=== PATIENT | female | born 1990 | race Caucasian/White ===

== ENCOUNTER 2019-08-28 21:01 | Outpatient (CLI) | payer OTHER ==
[2019-08-28 21:44] LABS: APPEARANCE,URINE SLIGHTLY-CLOUDY; BILIRUBIN,URINE SMALL (NEGATIVE); COLOR,URINE YELLOW; GLUCOSE, URINE NEGATIVE (NEGATIVE); KETONES,URINE 20 mg/dL (NEGATIVE); LEUKOCYTE ESTERASE,URINE LARGE (NEGATIVE); NITRITE,URINE NEGATIVE (NEGATIVE); PROTEIN,URINE 30 mg/dL (NEGATIVE); URINE SPECIFIC GRAVITY 1.038
[2019-08-28 21:54] LABS: URINE AMPHETAMINES SCREEN NEGATIVE; URINE BARBITURATES SCREEN NEGATIVE; URINE BENZODIAZEPINES SCREEN NEGATIVE; URINE COCAINE SCREEN NEGATIVE; URINE MARIJUANA (THC) SCREEN NEGATIVE; URINE METHADONE SCREEN NEGATIVE; URINE PHENCYCLIDINE SCREEN NEGATIVE
[2019-08-28] MEDS ORDERED: BUTALB/ACETAMINOPHEN/CAFFEINE 1 TAB EACH ONE (22:24)
[2019-08-28] MEDS ORDERED: RINGERS SOLUTION,LACTATED 300 ML IV ONE (22:30)
[2019-08-28] MEDS ORDERED: PROCHLORPERAZINE MALEATE 10 MG TABLET ONE (23:35)
[2019-08-28] MEDS ORDERED: PROCHLORPERAZINE MALEATE 10 MG TABLET PO ONE (23:38)
== END 2019-08-29 01:30 | disposition home or self-care (01) ==
LOC: LC 21:01
PROVIDERS: ATTEND Obstetrics & Gynecology
PROC: 4A1HXCZ Monitoring of Products of Conception, Cardiac Rate, External Approach (ICD-10-PCS; principal; 2019-08-28)
DX: O99.283 Endocrine, nutritional and metabolic diseases complicating pregnancy, third trimester (principal); E86.0 Dehydration; Z3A.31 31 weeks gestation of pregnancy
CPT/HCPCS: 59899; 81001; 80307; J3490; S0183

== ENCOUNTER 2019-10-22 20:20 | Outpatient (CLI) | payer OTHER ==
[2019-10-22 21:24] LABS: APPEARANCE,URINE CLEAR; BILIRUBIN,URINE NEGATIVE (NEGATIVE); COLOR,URINE STRAW; GLUCOSE, URINE NEGATIVE (NEGATIVE); KETONES,URINE NEGATIVE (NEGATIVE); LEUKOCYTE ESTERASE,URINE SMALL (NEGATIVE); NITRITE,URINE NEGATIVE (NEGATIVE); PROTEIN,URINE NEGATIVE (NEGATIVE); UROBILINOGEN,URINE NEGATIVE mg/dL (<2.0)
[2019-10-22 21:43] LABS: URINE AMPHETAMINES SCREEN NEGATIVE; URINE BARBITURATES SCREEN NEGATIVE; URINE BENZODIAZEPINES SCREEN NEGATIVE; URINE COCAINE SCREEN NEGATIVE; URINE MARIJUANA (THC) SCREEN NEGATIVE; URINE METHADONE SCREEN NEGATIVE; URINE PHENCYCLIDINE SCREEN NEGATIVE
[2019-10-22] MEDS ORDERED: HYDROXYZINE PAMOATE 50 MG CAPSULE PO ONE (21:45)
[2019-10-22] MEDS ORDERED: HYDROXYZINE PAMOATE 50 MG CAPSULE ONE (21:45)
--- NOTE | 2019-10-22 22:20 | Non Stress Test Report ---
Non Stress Test Datetime Report Generated by CPN: 10/22/2019 22:20 DEMOGRAPHIC EGA NST: 39.3 INDICATION Indication for Study (NST) Other: lc VITAL SIGNS Temperature - NST: 97.0 Pulse - NST: 81 RESP - NST: 17 NBPSYS NST: 121 NBPDIA NST: 72 MONITORING Monitor Explained: Monitor Explained; Test Explained; Patient Verbalized Understanding Time on Monitor: 10/22/2019 20:35 Time off Monitor: 10/22/2019 21:52 NST Duration: 77 NST INTERVENTIONS NST Interventions: PO Hydration; Reposition Patient Physician Notified NST: D [employer] CONVERTER SKIMMER A: [id number] BABY A Movement : Present Contraction Frequency : irreg FHR Baseline : 135 Accelerations : 15X15 Decelerations : None Variability : Moderate 6-25bpm NST Review: Meets Criteria for Reactive NST NST Review and Verified By : Michlele Elias RN NST Results: Reactive NST REPORT Report Trigger: Send Report
== END 2019-10-22 21:57 | disposition home or self-care (01) ==
LOC: LC 20:20
PROVIDERS: ATTEND Obstetrics & Gynecology
PROC: 4A1HXCZ Monitoring of Products of Conception, Cardiac Rate, External Approach (ICD-10-PCS; principal; 2019-10-22)
DX: O47.1 False labor at or after 37 completed weeks of gestation (principal); Z3A.39 39 weeks gestation of pregnancy
CPT/HCPCS: 59025; 80307; 81005

== ENCOUNTER 2019-10-24 07:41 | Inpatient (IN) | payer OTHER ==
[2019-10-24] MEDS ORDERED: ONDANSETRON HCL INJ/PF 4 MG/2 ML SDV ONE (08:48)
[2019-10-24] MEDS ORDERED: ONDANSETRON HCL INJ/PF 4 MG/2 ML SDV IV PRN (08:54)
--- NOTE | 2019-10-24 09:00 | Admission Physical ---
Datetime Report Generated by CPN: 10/24/2019 08:59 CURRENT ADMISSION Chief Complaint: Scheduled Induction of Labor Chief Complaint Other: Scheduled IOL: A1GDM, surrogate Indication for Induction: Maternal Diabetes Admit Impression : No Active Labor; Intact Membranes; Induction of Labor; Medical Complication Admit Plan: Admit to Unit; Initiate Labor Induction Protocol ALLERGIES Medication Allergies: No Medication Allergies: No Known Allergies (10/24/2019) Latex: No Latex Allergies Food Allergies: none Environmental Allergies: none OBSTETRICAL HISTORY EDC: 10/26/2019 00:00 : 7 Para: 6 Term: 6 : 0 SAB: 0 IAB: 0 Ectopic: 0 Cesareans: 0 VBACs: 0 Multiple Births: 0 Gestational Diabetes: Yes Rh Sensitization: No Incompetent Cervix: No QUAN: No Infertility: No ART Treatment: No Uterine Anomaly: No IUGR: No Hx Previous C/S: No Macrosomia: No Hx Loss/Stillborn: No PIH: No Hx : No Placenta Previa/Abruption: No Depression/PP Depression: No PTL/PROM: No Post Hemorrhage: No Current Procedures: Ultrasound; NST Obstetrical History Comments: G1- 2008 40.1 G2- 2010 39 G3- 2012 38 GHTN Magsulfate G4- 2014- surrogate G5- 2016- surrogate G6- 2017- surrogate G7- Current- surrogate, GDM, migraines headaches SEE RECORDS Alcohol: No Marijuana : No Cocaine: No Other Illicit Drugs: No Cigarettes: Never Smoker. [id number] MEDICAL HISTORY Diabetes: Yes Diabetes Type: Gestational Diabetes Blood Transfusion: No Pulmonary Disease (Asthma, TB): No Breast Disease: No Hypertension: No Chemical Production Technician Surgery: No Heart Disease: No Hosp/Surgery: No Autoimmune Disorder: No Anesthetic Complications: No Kidney Disease: No Abnormal Pap Smear: No Neuro/Epilepsy: No Psychiatric Disorders: No Other Medical Diseases: No Hepatitis/Liver Disease: No Significant Family History: No Varicosities/Phlebitis: No Trauma/Violence : No Thyroid Dysfunction: No INFECTIOUS HISTORY Gonorrhea: No Genital Herpes: No Chlamydia: No Tuberculosis: No Syphilis: No Hepatitis: No HIV/AIDS Exposure: No Rash or Viral Illness: No HPV: No PHYSICAL EXAM General: Normal HEENT: Normal Neurologic: Normal Thyroid: Normal Heart: Normal Lungs: Normal Breast: Normal Back: Normal Abdomen: Normal Genitourinary Exam: Normal Extremities: Normal DTRs: Normal Pelvic Type: Adequate Vital Signs: Reviewed; Within Normal Limits VAGINAL EXAM Dilatation: 4 Effacement: 60 Station: -1 Contraction Comments: Irregular MEMBRANES Membranes: Intact FETUS A EGA: 39.5 Monitoring: External US FHR- Baseline: 140 Variability: Moderate 6-25bpm Accelerations: 15X15 Decelerations: None FHR Category: Category I Presentation: Vertex Admit Comment: 29 yo at 39.5 wks EGA for IOL, complicated by A1GDM and surrogate . THis is 4th time she has been a surrogate. Mild anemia on Iron therapy -Admit to LDR -NPO except ice chips and popsicles -CEFM and toco -Admission labs -Accuchecks Q 4 hrs until active labor and then Q 2 hrs -RH neg, s/p rhogam at 28 wks -Rubella non--immune- vac after delivery -GBS negative -Begin Pitocin 2 units and increase by 2 units every 30 minutes -Anticipate . Hx of 6 prior SVDs -Cord blood collection at delivery for banking-per patient request. PLANS FOR LABOR AND DELIVERY Pain Management: Epidural Circumcision: No INFORMED CONSENT Informed Consent Obtained: Vaginal Delivery; Section Delivery; Induction of Labor; Risks, Benefits and Alternatives Discussed Signature: with User ID: [email or web address] : with User ID: [email or web address]
[2019-10-24] MEDS ORDERED: MISOPROSTOL 0.2 MG TABLET ONE (09:09)
[2019-10-24] MEDS ORDERED: OXYTOCIN 10 UNIT/ML VIAL ONE (09:09)
[2019-10-24] MEDS ORDERED: LIDOCAINE 1% INJ-PF (10 MG/ML) 30 ML SDV ONE (09:10)
[2019-10-24] MEDS ORDERED: OXYTOCIN/NORMAL SALINE 20 UNIT/1,000 ML RTUINJ ONE (09:10)
[2019-10-24] MEDS ORDERED: OXYTOCIN/NORMAL SALINE 20 UNIT/1,000 ML RTUINJ IV PRN ×2 (09:15→12:25)
[2019-10-24] MEDS ORDERED: RINGERS SOLUTION,LACTATED 1,000 ML IV PRN (09:15)
[2019-10-24] MEDS ORDERED: RINGERS SOLUTION,LACTATED 300 ML IV ONE (09:15)
[2019-10-24] MEDS ORDERED: FENTANYL CITRATE INJ/PF 100 MCG/2 ML AMPUL ONE (10:16)
[2019-10-24] MEDS ORDERED: PHENYLEPHRINE HCL INJ/PF 10 MG/1 ML SDV ONE (10:16)
[2019-10-24] MEDS ORDERED: FENTANYL/BUPIVACAINE/NS/PF 300 MCG/150 ML RTUINJ EPI ONE (10:17)
[2019-10-24] MEDS ORDERED: BUPIVACAINE HCL 0.25 % INJ/PF (2.5 MG/1 ML) 30 ML VIAL ONE (10:17)
[2019-10-24] MEDS ORDERED: EPHEDRINE SULFATE INJ 50 MG/1 ML AMPULE ONE (10:17)
[2019-10-24 10:23] LABS: ABSOLUTE BASOPHILS # (AUTO) 0.1 10^3/uL (0.0-0.2); ABSOLUTE EOSINOPHILS # (AUTO) 0.1 10^3/uL (0.0-0.6); ABSOLUTE LYMPHOCYTES (AUTO) 1.5 10^3/uL (0.5-4.7); ABSOLUTE MONOCYTES (AUTO) 0.5 10^3/uL (0.1-1.4); ABSOLUTE NEUT (AUTO) 9.6 10^3/uL (1.7-8.2); BASOPHILS % (AUTO) 0.6 % (0-2); EOSINOPHILS % (AUTO) 1.2 % (0-6); HEMATOCRIT 29.7 % (36.0-47.0); HEMOGLOBIN 9.3 g/dL (12.0-15.5); MEAN CORPUSCULAR HGB CONC 31.3 g/dL (32.0-36.0); MEAN CORPUSCULAR VOLUME 67 fl (80-97); MONOCYTES % (AUTO) 4.5 % (3-13); PLATELET COUNT 189 10^3/uL (150-450); RED BLOOD COUNT 4.41 10^6/uL (3.72-5.28); RED CELL DISTRIBUTION WIDTH 19.4 % (11.5-14.0); SEGMENTED NEUTROPHILS % (AUTO) 80.7 % (42-78); TOTAL CELLS COUNTED % (AUTO) 100 %; WHITE BLOOD COUNT 11.9 10^3/uL (4.0-10.5)
[2019-10-24 10:43] LABS: URINE AMPHETAMINES SCREEN NEGATIVE; URINE BARBITURATES SCREEN NEGATIVE; URINE BENZODIAZEPINES SCREEN NEGATIVE; URINE COCAINE SCREEN NEGATIVE; URINE MARIJUANA (THC) SCREEN NEGATIVE; URINE METHADONE SCREEN NEGATIVE; URINE PHENCYCLIDINE SCREEN NEGATIVE
[2019-10-24 11:42] LABS: APPEARANCE,URINE SLIGHTLY-CLOUDY; BILIRUBIN,URINE NEGATIVE (NEGATIVE); COLOR,URINE STRAW; GLUCOSE, URINE NEGATIVE (NEGATIVE); KETONES,URINE NEGATIVE (NEGATIVE); LEUKOCYTE ESTERASE,URINE LARGE (NEGATIVE); NITRITE,URINE NEGATIVE (NEGATIVE); PROTEIN,URINE NEGATIVE (NEGATIVE); URINE SPECIFIC GRAVITY 1.008; UROBILINOGEN,URINE NEGATIVE mg/dL (<2.0)
[2019-10-24] MEDS ORDERED: PROMETHAZINE HCL INJ 25 MG/1 ML VIAL IV PRN (12:25)
[2019-10-24] MEDS ORDERED: ACETAMINOPHEN WITH CODEINE #3 TABLET PO PRN (12:25)
[2019-10-24] MEDS ORDERED: NA PHOS,M-B/NA PHOS,DI-BA (ADULT) 133 ML ENEMA PR PRN (12:25)
[2019-10-24] MEDS ORDERED: ZOLPIDEM TARTRATE 5 MG TABLET PO PRN (12:25)
[2019-10-24] MEDS ORDERED: ACETAMINOPHEN 650 MG SUPP.RECT PR PRN (12:25)
[2019-10-24] MEDS ORDERED: MEASLES,MUMPS&RUBELLA VACC/PF 0.5 ML VIAL SUBCUT PRN (12:25)
[2019-10-24] MEDS ORDERED: BENZOCAINE/MENTHOL AEROSOL SPRAY 56 ML TOP PRN (12:25)
[2019-10-24] MEDS ORDERED: DIBUCAINE 1% OINTMENT 28 GM TP PRN (12:25)
[2019-10-24] MEDS ORDERED: MAGNESIUM HYDROXIDE SUSP 30 ML UDCUP PO PRN (12:25)
[2019-10-24] MEDS ORDERED: DIPHENHYDRAMINE HCL 25 MG CAPSULE PO PRN (12:25)
[2019-10-24] MEDS ORDERED: PROMETHAZINE HCL 25 MG TABLET PO PRN (12:25)
[2019-10-24] MEDS ORDERED: PSEUDOEPHEDRINE HCL 30 MG TABLET PO PRN (12:25)
[2019-10-24] MEDS ORDERED: GLYCERIN/WITCH HAZEL LEAF 1 EACH MED..WIPE TP PRN (12:25)
[2019-10-24] MEDS ORDERED: PROMETHAZINE HCL 25 MG SUPP.RECT PR PRN (12:25)
[2019-10-24] MEDS ORDERED: BENZOCAINE/MENTHOL AEROSOL SPRAY 56 ML ONE (13:18)
[2019-10-24] MEDS ORDERED: IBUPROFEN 800 MG TABLET ONE (13:18)
[2019-10-24] MEDS: IBUPROFEN 800 MG TABLET PO SCH ×2 (13:24→22:07)
--- NOTE | 2019-10-24 14:02 | Warning Signs in Babies ---
VOD Warning Signs Datetime Report Generated by [facility]: 10/24/2019 14:02 VOD#608 -Warning Signs in Babies: Needs to be viewed. (08/28/2019 21:33:Barbara Queen RN)
--- NOTE | 2019-10-24 15:27 | Delivery Summary ---
Del Sum A-C Datetime Report Generated by CPN: 10/24/2019 15:27 DELIVERY PERSONNEL DELIVERY PERSONNEL: [id number] Delivery Doctor:: Monserrat Jennings CNM Labor and Delivery Nurse:: Tea Miramontes RNblocking machine operator second Nurse:: Barbara Queen RN Converting Operator/PAPER MACHINE BACKTENDER: Ana Luisa Carrillo, CHANNELING MACHINE OPERATOR MATERNAL INFORMATION Delivery Anesthesia: Epidural Medications After Delivery: Pitocin Bolus-Please Comment Meds After Delivery Comment: 20 units in 1000mL NS Delivery QBL: 100 Delivery QBL Comment: 100 Maternal Complications: None Provider Comments: Pt with strong urge to push AROM-cleared fluid and found to be 7/c/0. Pressure increased within several contractions and then progressed to c/c/1 pt began pushing and quickly delivered a viable baby boy with vigorous respiratory effort and cry spontaneously at . Baby placed on pt's abdomen, cord clamping delayed x2 minutes then clamped and cut by pt's . Baby then placed skin to skin on biological father. Cord blood obtained for eval, cord segment prepped for cord collection and cord blood obtained per kit directions. Placenta delivered spontaneously intact (marginal cord insertion noted). Fundus firm @ u-2 minimal bleeding. Vaginal and perineal inspection revealed no laceration and small abrasion as noted. Cord tissue sample obtained for collection kit provided by biological parents. Pt stable and baby remains skin to skin with father at this time. LABOR SUMMARY EDC: 10/26/2019 00:00 No. Babies in Womb: 1 Attempted: No Labor Anesthesia: Epidural LABOR INFORMATION Reason for Induction: Maternal Diabetes Reason for Induction- Other: gestational diabetes Onset of Labor: 10/24/2019 10:00 Complete Dilatation: 10/24/2019 12:02 Oxytocin: Induction Group B Beta Strep: Negative Antibiotics # of Doses: 0 Antibiotics Time of Last Dose: n/a Name of Antibiotic Given: n/a Steroids Given: None Reason Steroids Not Administered: Not Applicable MEMBRANES Membranes Rupture Method: Artificial Rupture of Membranes: 10/24/2019 11:38 Length of Rupture (hr): 0.55 Amniotic Fluid Color: Clear Amniotic Fluid Amount: Moderate Amniotic Fluid Odor: Normal STAGES OF LABOR Stage 1 hr: 2 Stage 1 min: 2 Stage 2 hr: 0 Stage 2 min: 9 Stage 3 hr: 0 Stage 3 min: 7 Total Time in Labor hr: 2 Total Time in Labor min: 18 VAGINAL DELIVERY Episiotomy: None Laceration #1: None Laceration Extension #1: N/A Other Laceration: superficial ML abrasion Laceration Repair: Not Applicable Laceration Repair Note: hemostatic, no repair needed Sponge Count Correct: N/A Sharps Count Correct: N/A CSECTION DELIVERY Primary Indication: N/A Secondary Indication: N/A CSection Incidence: N/A Labor: N/A Elective: N/A CSection Incision: N/A BABY A INFORMATION Infant Delivery Date/Time: 10/24/2019 12:11 Method of Delivery: Vaginal Born in Route : No : N/A Forceps: N/A Vacuum Extraction: N/A Shoulder Dystocia : No PRESENTATION/POSITION BABY A Presentation: Cephalic Cephalic Presentation: Vertex Vertex Position: Right Occipital Anterior Breech Presentation: N/A PLACENTA INFORMATION BABY A Placenta Delivery Time : 10/24/2019 12:18 Placenta Method of Delivery: Spontaneous Placenta Status: Delivered SCORES BABY A Heart Rate 1 min: >100 bpm Resp Effort 1 min: Good Cry Reflex Irritability 1 min: Cough or Sneeze or Pulls Away Muscle Tone 1 min: Active Motion Color 1 min: Body Moodus, Extremities Blue Resuscitation Effort 1 min: Tactile Stimulation SCORE 1 MIN: 9 Heart Rate 5 min: >100 bpm Resp Effort 5 min: Good Cry Reflex Irritability 5 min: Cough or Sneeze or Pulls Away Muscle Tone 5 min: Active Motion Color 5 min: Completely Moodus Resuscitation Effort 5 min: Tactile Stimulation SCORE 5 MIN: 10 INFORMATION BABY A Gestational Age at Delivery: 39.5 Gestational Status: Full Term- 39- 40.6 Weeks Infant Outcome : Liveborn Condition : Stable Sex: Male IDENTIFICATION BABY A Infant Verification Date/Time: 10/24/2019 12:19 ID Band Number: [id number] Mother's Name Verified: Yes Infant RN Verifying : C. Kulwinder RN Additional Verifying Personnel: S. Raimundo CHANNELING MACHINE OPERATOR WEIGHT/LENGTH BABY A Infant Birthweight (gm): 3892 Weight (lb): 8 Infant Weight (oz): 9 Length (in): 22.00 Infant Length (cm): 55.88 CORD INFORMATION BABY A No. Cord Vessels: 3 Nuchal Cord : N/A Cord Blood Taken: Yes-For Eval (Mom's Blood Type - or O+) Infant Suction: None ASSESSMENT BABY A Infant Complications: None Physical Findings at Delivery: Within Normal Limits Respirations: Appears Normal Skin to Skin: No Office Manager/ALS Called : No Care By: Khushbu Miramontes RN/ Ramu Queen RN Transferred To: Remains with Mother BABY B INFORMATION : N/A SIGNATURES Assignment: Ni Ordaz MD Signature: with User ID: [email or web address] : with User ID: [email or web address]
[2019-10-24] MEDS: ACETAMINOPHEN WITH CODEINE #3 TABLET PO PRN (16:50)
[2019-10-24] MEDS: DOCUSATE SODIUM 100 MG CAPSULE PO SCH (18:20)
[2019-10-24] MEDS: FERROUS SULFATE 325 MG TABLET PO SCH (18:20)
[2019-10-24] MEDS: FAMOTIDINE 20 MG TABLET PO SCH (22:07)
[2019-10-25] MEDS: ACETAMINOPHEN WITH CODEINE #3 TABLET PO PRN (00:42)
[2019-10-25] MEDS: IBUPROFEN 800 MG TABLET PO SCH ×3 (05:51→21:07)
[2019-10-25 07:03] LABS: HEMATOCRIT 25.2 % (36.0-47.0); MEAN CORPUSCULAR HEMOGLOBIN 20.8 pg (27.0-33.4); MEAN CORPUSCULAR VOLUME 67 fl (80-97); PLATELET COUNT 155 10^3/uL (150-450); RED BLOOD COUNT 3.75 10^6/uL (3.72-5.28); RED CELL DISTRIBUTION WIDTH 19.2 % (11.5-14.0); WHITE BLOOD COUNT 12.8 10^3/uL (4.0-10.5)
[2019-10-25 07:05] LABS: HEMOGLOBIN 7.8 g/dL (12.0-15.5)
[2019-10-25] MEDS: SENNOSIDES/DOCUSATE 8.6-50 MG 1 EACH TABLET PO SCH (09:29)
[2019-10-25] MEDS: DOCUSATE SODIUM 100 MG CAPSULE PO SCH ×2 (09:29→17:50)
[2019-10-25] MEDS: PRENATAL VITAMIN W DHA CAPSULE PO SCH (09:29)
[2019-10-25] MEDS: FERROUS SULFATE 325 MG TABLET PO SCH ×2 (09:29→17:50)
[2019-10-25] MEDS: FAMOTIDINE 20 MG TABLET PO SCH ×2 (09:30→21:07)
[2019-10-25] MEDS: OXYCODONE-ACETAMINOPHEN 5-325 MG TABLET PO PRN ×2 (12:19→20:22)
[2019-10-26] MEDS: IBUPROFEN 800 MG TABLET PO SCH (05:26)
[2019-10-26 08:12] VITALS: BP 115/66
[2019-10-26] MEDS: PRENATAL VITAMIN W DHA CAPSULE PO SCH (10:16)
[2019-10-26] MEDS: SENNOSIDES/DOCUSATE 8.6-50 MG 1 EACH TABLET PO SCH (10:16)
[2019-10-26] MEDS: DOCUSATE SODIUM 100 MG CAPSULE PO SCH (10:16)
[2019-10-26] MEDS: FERROUS SULFATE 325 MG TABLET PO SCH (10:16)
[2019-10-26] MEDS: FAMOTIDINE 20 MG TABLET PO SCH (10:17)
[2019-10-26] MEDS: OXYCODONE-ACETAMINOPHEN 5-325 MG TABLET PO PRN (10:24)
--- NOTE | 2019-10-26 11:59 | PDOC PROGRESS REPORT ---
Subjective-OB Progress Note for:: 10/26/19 Subjective: Ready for discharge. Physical Exam (OB) Vital Signs: Temp Pulse Resp BP Pulse Ox 98.3 F 64 16 115/66 100 10/26/19 08:01 10/26/19 08:01 10/26/19 08:01 10/26/19 08:01 10/26/19 08:01 Intake & Output 10/25/19 10/26/19 10/27/19 06:59 06:59 06:59 Intake Total 300 Balance 300 Weight 64.909 kg - PIH/Pre-Eclampsia DTR's: 1 + Clonus: Negative Headache: Absent Epigastric Pain: No Visual Changes: No - Lochia Lochia Amount: Small 10-25 ml Lochia Color: Rubra/Red - Abdomen Description: Soft, Round Hernia Present: No Bowel Sounds: Normoactive Flatus Presence: Present Stool: Yes Fundal Description: Firm, Midline Fundal Height: u/u - u/2 Objective-Diagnostic Laboratory: 10/25/19 06:44 10/25/19 06:44 Blood Type B NEGATIVE
--- NOTE | 2019-10-26 12:08 | PDOC DISCHARGE SUMMARY ---
Impression - Admit/DC Date/PCP Admission Date/Primary Care Provider: 10/24/19 07:41 SALINA TIDWELL MD Discharge Date: 10/26/19 - Discharge Diagnosis (1) Delivery normal Is this a current diagnosis for this admission?: Yes (3) Gestational diabetes mellitus (GDM) affecting seventh Is this a current diagnosis for this admission?: Yes (4) state, gestational carrier Is this a current diagnosis for this admission?: Yes (5) Rh negative status during Is this a current diagnosis for this admission?: Yes (6) Surrogate Is this a current diagnosis for this admission?: Yes - Additional Information Resuscitation Status: Full Code Discharge Diet: Regular Discharge Activity: Activity As Tolerated, Balance Activity w/Rest, Pelvic Rest, Slowly Increase Activity, No tub bath Referrals: SALINA TIDWELL MD [Primary Care Provider] - Home Medications: No122/Iron/Folic Acid [ Multi Tablet] 1 tab PO DAILY 08/28/19 Ferrous Sulfate [Feosol 325 mg Tablet] 325 mg PO BID tablet 10/26/19 Iron 1 tab PO BID #30 10/26/19 HPI Gestational Age: 39.5 wks Reason(s) for Admission: Induction of Labor, Gestional Diabetes Procedures: Ultrasound Intrapartum Procedure(s): Spontaneous Vaginal Delivery Results Laboratory Results: WBC 12.8 10^3/uL (4.0-10.5) H 10/25/19 06:44 RBC 3.75 10^6/uL (3.72-5.28) 10/25/19 06:44 Hgb 7.8 g/dL (12.0-15.5) L 10/25/19 06:44 Hct 25.2 % (36.0-47.0) L 10/25/19 06:44 MCV 67 fl (80-97) L 10/25/19 06:44 MCH 20.8 pg (27.0-33.4) L 10/25/19 06:44 MCHC 31.0 g/dL (32.0-36.0) L 10/25/19 06:44 RDW 19.2 % (11.5-14.0) H 10/25/19 06:44 Plt Count 155 10^3/uL (150-450) 10/25/19 06:44 Lymph % (Auto) 13.0 % (13-45) 10/24/19 10:02 [place] % (Auto) 4.5 % (3-13) 10/24/19 10:02 Eos % (Auto) 1.2 % (0-6) 10/24/19 10:02 Baso % (Auto) 0.6 % (0-2) 10/24/19 10:02 Absolute Neuts (auto) 9.6 10^3/uL (1.7-8.2) H 10/24/19 10:02 Absolute Lymphs (auto) 1.5 10^3/uL (0.5-4.7) 10/24/19 10:02 Absolute Monos (auto) 0.5 10^3/uL (0.1-1.4) 10/24/19 10:02 Absolute Eos (auto) 0.1 10^3/uL (0.0-0.6) 10/24/19 10:02 Absolute Basos (auto) 0.1 10^3/uL (0.0-0.2) 10/24/19 10:02 Seg Neutrophils % 80.7 % (42-78) H 10/24/19 10:02 Urine Color STRAW 10/24/19 07:50 Urine Appearance SLIGHTLY-CLOUDY 10/24/19 07:50 Urine pH 7.0 (5.0-9.0) 10/24/19 07:50 Ur Specific [place] 1.008 10/24/19 07:50 Urine Protein NEGATIVE mg/dL (NEGATIVE) 10/24/19 07:50 Urine Glucose (UA) NEGATIVE mg/dL (NEGATIVE) 10/24/19 07:50 Urine Ketones NEGATIVE mg/dL (NEGATIVE) 10/24/19 07:50 Urine Blood NEGATIVE (NEGATIVE) 10/24/19 07:50 Urine Nitrite NEGATIVE (NEGATIVE) 10/24/19 07:50 Urine Bilirubin NEGATIVE (NEGATIVE) 10/24/19 07:50 Urine Urobilinogen NEGATIVE mg/dL (<2.0) 10/24/19 07:50 Ur Leukocyte Esterase LARGE (NEGATIVE) H 10/24/19 07:50 Urine Ascorbic Acid NEGATIVE (NEGATIVE) 10/24/19 07:50 Urine Opiates Screen NEGATIVE 10/24/19 07:50 Urine Methadone Screen NEGATIVE 10/24/19 07:50 Ur Barbiturates Screen NEGATIVE 10/24/19 07:50 Ur Phencyclidine Scrn NEGATIVE 10/24/19 07:50 Ur Amphetamines Screen NEGATIVE 10/24/19 07:50 U Benzodiazepines Scrn NEGATIVE 10/24/19 07:50 Urine Cocaine Screen NEGATIVE 10/24/19 07:50 U Marijuana (THC) Screen NEGATIVE 10/24/19 07:50 RPR NONREACTIVE (NONREACTIVE) 10/24/19 10:02 Blood Type B NEGATIVE 10/25/19 06:44 Antibody Screen NEGATIVE 10/24/19 10:02 Screen NEGATIVE 10/25/19 06:44 Plan Plan of Treatment: Follow up at [facility] in 4 wks or prn. Pelvic rest x 4-6 wks. Time Spent: Less than 30 Minutes
== END 2019-10-26 13:15 | disposition home or self-care (01) | DRG 807 ==
LOC: LR 07:41 → 2S 16:25
PROVIDERS: ADMIT Obstetrics & Gynecology; ATTEND Obstetrics & Gynecology
PROC: 10E0XZZ Delivery of Products of Conception, External Approach (ICD-10-PCS; principal; 2019-10-24)
PROC: 10907ZC Drainage of Amniotic Fluid, Therapeutic from Products of Conception, Via Natural or Artificial Opening (ICD-10-PCS; 2019-10-24)
DX: O24.419 Gestational diabetes mellitus in pregnancy, unspecified control (principal); Z37.0 Single live birth; O99.02 Anemia complicating childbirth; D64.9 Anemia, unspecified; O70.0 First degree perineal laceration during delivery; Z3A.39 39 weeks gestation of pregnancy; Z31.7 Encounter for procreative management and counseling for gestational carrier
CPT/HCPCS: 36415; 80307; 81005; 85025; 85027; 85461; 86592; 86850; 86900; 86901; 94760; J2370; J2405; J2590; J2790; J3010; J3490